=== PATIENT | male | born 1965 | race Caucasian/White ===

== ENCOUNTER 2018-12-17 09:01 | Inpatient (IN) | payer OTHER ==
[2018-12-17 09:25] VITALS: BMI 37.4
--- NOTE | 2018-12-17 10:25 | HP ---
CIWA Score Nausea/Vomitin-Int. Nausea w/Dry Heave Muscle Tremors: 2 Anxiety: 4-Mod. Anxious/Guarded Agitation: 1-Slight > Activity Paroxysmal Sweats: 3 Orientation: 0-Oriented Tacttile Disturbances: 2-Mild Itch/Numbness/Burn Auditory Disturbances: 0-None Visual Disturbances: 0-None Headache: 4-Moderately Severe CIWA-Ar Total Score: 20 - Admission Criteria OASAS Guidelines: Admission for Medically Managed Detox: Requires at least one of the followin. CIWA greater than 12 2. Seizures within the past 24 hours 3. Delirium tremens within the past 24 hours 4. Hallucinations within the past 24 hours 5. Acute intervention needed for co occurring medical disorder 6. Acute intervention needed for co occurring psychiatric disorder 7. Severe withdrawal that cannot be handled at a lower level of care (continued vomiting, continued diarrhea, abnormal vital signs) requiring intravenous medication and/or fluids 8. Patient presents the following: CIWA greater than 12 Admission Criteria Met: Admission criteria met Admission ROS S - HPI Allergies/Adverse Reactions: Allergies Allergy/AdvReac Type Severity Reaction Status Date / Time fish derived Allergy Intermediate Difficulty Verified 12/17/18 09:31 Breathing Penicillins Allergy Intermediate Difficulty Verified 12/17/18 09:31 Breathing shellfish derived Allergy Intermediate Difficulty Verified 12/17/18 09:31 Breathing seafood Allergy Intermediate Difficulty Uncoded 12/17/18 09:31 Breathing History of Present Illness: pt here requesting detox from etoh use reports 3 pints vodka and several large beers /day , denies seizures, + blackouts , tremors , currently intoxicated , symptoms as above , denies falls , reports he starts drinking all through the day . cocaine : 100 $ / day via inhalation . tobacco : 1 ppd PMhx : HTN , gerd PShx : dental surgery Meds : omeprazole, lisinopril, amlodipine, hctz , motrin prn . Exam Limitations: Clinical Condition, Intoxication - Ebola screening Have you traveled outside of the country in the last 21 days: No Have you had contact with anyone from an Ebola affected area: No Have you been sick,other than usual withdrawal symptoms: No Do you have a fever: No - Review of Systems Constitutional: See HPI EENT: reports: See HPI Respiratory: reports: No Symptoms reported Cardiac: reports: No Symptoms Reported GI: reports: See HPI : reports: No Symptoms Reported Musculoskeletal: reports: No Symptoms Reported Integumentary: reports: No Symptoms Reported Neuro: reports: See HPI, Headache Endocrine: reports: No Symptoms Reported Psychiatric: reports: Orientated x3 (denies current si / HI) Patient History - Patient Medical History Hx Anemia: No Hx Asthma: No Hx Chronic Obstructive Pulmonary Disease (COPD): No Hx Cancer: No Hx Cardiac Disorders: No Hx Congestive Heart Failure: No Hx Hypertension: Yes (ON MEDICATION) Hx Hypercholesterolemia: No Hx Pacemaker: No HX Cerebrovascular Accident: No Hx Seizures: No Hx Dementia: No Hx Diabetes: No Hx Gastrointestinal Disorders: No Hx Liver Disease: No Hx Genitourinary Disorders: No Hx Sexually Transmitted Disorders: No Hx Renal Disease (ESRD): No Hx Thyroid Disease: No Hx Human Immunodeficiency Virus (HIV): No Hx Hepatitis C: No Hx Depression: No Hx Suicide Attempt: No Hx Bipolar Disorder: No Hx Schizophrenia: No - Patient Surgical History Past Surgical History: Yes Hx Neurologic Surgery: No Hx Cataract Extraction: No Hx Cardiac Surgery: No Hx Lung Surgery: No Hx Breast Surgery: No Hx Breast Biopsy: No Hx Abdominal Surgery: No Hx Appendectomy: No Hx Cholecystectomy: No Hx Genitourinary Surgery: No Hx Section: No Hx Orthopedic Surgery: No Other Surgical History: peridontal gum disease removed 29 teeth Anesthesia Reaction: No - PPD History Previous Implant?: Yes Date: 07/16/13 Results: NEGATIVE - Smoking Cessation Smoking history: Current every day smoker Have you smoked in the past 12 months: Yes Aproximately how many cigarettes per day: 20 Cigars Per Day: 0 Hx Chewing Tobacco Use: No Initiated information on smoking cessation: No - Substances Abused Alcohol Route: Oral Frequency: Daily Amount used: 3 PINTS OF VODKA Age of first use: 35 Date of Last Use: 12/17/18 Crack Route: Inhalation Frequency: Daily Amount used: $100 Age of first use: 35 Date of Last Use: 12/17/18 Family Disease History - Family Disease History Family Disease History: CA: Father Admission Physical Exam BHS - Vital Signs Vital Signs: Vital Signs - 24 hr 12/17/18 09:19 Temperature 97.3 F L Pulse Rate 78 Respiratory 18 Rate Blood Pressure 118/70 - Physical General Appearance: Yes: Disheveled, Alcohol on Breath, Intoxicated HEENTM: Yes: EOMI, Hearing grossly Normal, Normocephalic, Normal Voice Respiratory: Yes: Chest Non-Tender, Lungs Clear, Normal Breath Sounds Neck: Yes: No masses,lesions,Nodules, Trachea in good position Breast: Yes: Breast Exam Deferred Cardiology: Yes: Regular Rhythm, Regular Rate, S1, S2 Abdominal: Yes: Normal Bowel Sounds, Soft, Protuberent Genitourinary: Yes: Within Normal Limits Back: Yes: Normal Inspection Musculoskeletal: Yes: full range of Motion, Gait Steady Extremities: Yes: Normal Capillary Refill, Non-Tender Neurological: Yes: Motor Strength 5/5 Integumentary: Yes: Normal Color Lymphatic: Yes: Within Normal Limits - Diagnostic (1) Nicotine dependence Current Visit: Yes Status: Chronic Qualifiers: Nicotine product type: cigarettes (2) Alcohol dependence Current Visit: No Status: Active (3) Cocaine dependence Current Visit: No Status: Chronic BHS Breath Alcohol Content Breath Alcohol Content: 0.050 Urine Drug Screen - Results Drug Screen Negative: No Urine Drug Screen Results: GEORGIE-Cocaine
[2018-12-17] MEDS ORDERED: P-EPHED 60MG/TRIPROLIDI 2.5MG TABLET PO PRN (10:26)
[2018-12-17] MEDS ORDERED: MAGNESIUM HYDROX 2400MG/30ML ORAL SUSPENSION 30 ML CUP PO PRN (10:26)
[2018-12-17] MEDS ORDERED: MAGNESIUM CITRATE 300 ML BOTTLE PO PRN (10:26)
[2018-12-17] MEDS ORDERED: MENTHOL/PHENOL 1 EACH UD MM PRN (10:26)
[2018-12-17] MEDS ORDERED: ACETAMINOPHEN 325 MG TABLET (FP) PO PRN (10:26)
[2018-12-17] MEDS ORDERED: guaiFENesin/D-METHORPHAN HB 10 ML UNIT-DOSE CUPS PO PRN (10:26)
[2018-12-17] MEDS ORDERED: MAG HYDROX/AL HYDROX/SIMETH 30 ML UNIT-DOSE CUP PO PRN (10:26)
[2018-12-17] MEDS: chlordiazePOXIDE HCL 25 MG CAPSULE PO PRN (11:43)
[2018-12-17] MEDS ORDERED: NICOTINE 14 MG/24 HOURS TOPICAL PATCH TD SCH (12:45)
--- NOTE | 2018-12-17 16:57 | PN ---
S Progress Note Note: Vital Signs Temperature 98.1 F 12/17/18 14:28 Pulse Rate 81 12/17/18 14:28 Respiratory Rate 18 12/17/18 14:28 Blood Pressure 143/71 12/17/18 14:28 O2 Sat by Pulse Oximetry (%) Patient refused low NA diet. Place on reg diet as per patients request.
[2018-12-17] MEDS: chlordiazePOXIDE HCL 25 MG CAPSULE PO SCH ×2 (17:42→22:17)
[2018-12-17] MEDS: IBUPROFEN 600 MG TABLET (FP) PO PRN (20:18)
[2018-12-17] MEDS: THIAMINE HCL 100 MG TABLET (FP) PO SCH (22:20)
[2018-12-17] MEDS: NICOTINE POLACRILEX 2 MG GUM BUC PRN (22:21)
[2018-12-18] MEDS: chlordiazePOXIDE HCL 25 MG CAPSULE PO SCH ×4 (06:11→22:09)
[2018-12-18 10:03] LABS: HEMATOCRIT 41.1 % (35.4-49); HEMOGLOBIN 14.4 GM/dL (11.7-16.9); MCH 33.3 pg (25.7-33.7); MEAN CELL VOLUME 94.9 fl (80-96); MEAN PLT VOLUME 8.2 fl (7.5-11.1); PLATELET COUNT 232 K/MM3 (134-434); RBC 4.33 M/mm3 (4.00-5.60); WHITE BLOOD COUNT 5.7 K/mm3 (4.0-10.0)
--- NOTE | 2018-12-18 10:36 | PN ---
S CIWA - CIWA Score Nausea/Vomitin-No Nausea/No Vomiting Muscle Tremors: 4-Moderate,w/Arms Extend Anxiety: 4-Mod. Anxious/Guarded Agitation: 4-Moderately Restless Paroxysmal Sweats: 3 Orientation: 0-Oriented Tacttile Disturbances: 0-None Auditory Disturbances: 0-None Visual Disturbances: 0-None Headache: 0-None Present CIWA-Ar Total Score: 15 BHS Progress Note (SOAP) Subjective: tired sleepy sweats shakes interrupted sleep body aches sore throat nausea Objective: 12/18/18 10:35 Vital Signs Temperature 98.2 F 12/18/18 09:38 Pulse Rate 61 12/18/18 09:38 Respiratory Rate 20 12/18/18 09:38 Blood Pressure 153/81 12/18/18 09:38 O2 Sat by Pulse Oximetry (%) Laboratory Tests 12/18/18 07:00 WBC 5.7 RBC 4.33 Hgb 14.4 Hct 41.1 MCV 94.9 MCH 33.3 MCHC 35.0 RDW 14.0 Plt Count 232 MPV 8.2 rest of labs pending aaox3 ambulating no acute distress Assessment: 12/18/18 10:35 withdrawal sx Plan: continue detox increase fluids labs pending zofran prn
[2018-12-18] MEDS: amLODIPine BESYLATE 10 MG TABLET (FP) PO SCH (10:55)
[2018-12-18] MEDS: HYDROCHLOROTHIAZIDE 25 MG TABLET (FP) PO SCH (10:55)
[2018-12-18] MEDS: LISINOPRIL 20 MG TABLET (FP) PO SCH (10:55)
[2018-12-18] MEDS: PANTOPRAZOLE 40 MG TABLET (FP) PO SCH (10:55)
[2018-12-18] MEDS: PRENATAL VITAMINS W/ FOLIC ACID TABLET (FP) PO SCH (10:55)
[2018-12-18] MEDS: NICOTINE 21 MG/24 HOURS TOPICAL PATCH TD SCH (10:56)
[2018-12-18] MEDS: NICOTINE POLACRILEX 2 MG GUM BUC PRN ×3 (10:59→20:30)
[2018-12-18] MEDS ORDERED: ONDANSETRON *ODT* 4 MG TABLET SL PRN (10:59)
[2018-12-18 11:16] LABS: ALBUMIN 3.4 g/dl (3.4-5.0); ALK PHOS 153 U/L (45-117); ANION GAP 6 MMOL/L (8-16); BILIRUBIN,TOTAL 0.4 mg/dL (0.2-1); BLOOD UREA NITROGEN 23 mg/dL (7-18); CALCIUM 8.4 mg/dL (8.5-10.1); CHLORIDE 107 mmol/L (98-107); CO2 29 mmol/L (21-32); GLUCOSE,RANDOM 83 mg/dL (74-106); POTASSIUM 3.9 mmol/L (3.5-5.1); SGOT/AST 25 U/L (15-37); SGPT/ALT 27 U/L (13-61); SODIUM 142 mmol/L (136-145); TOT PROT 6.5 g/dl (6.4-8.2)
[2018-12-18] MEDS: IBUPROFEN 600 MG TABLET (FP) PO PRN ×2 (13:12→20:28)
[2018-12-18] MEDS: chlordiazePOXIDE HCL 25 MG CAPSULE PO PRN (13:15)
[2018-12-18] MEDS: VITAMINS A AND D TOPICAL OINTMENT 60 GM TUBE TP SCH ×2 (15:44→22:09)
[2018-12-18] MEDS: THIAMINE HCL 100 MG TABLET (FP) PO SCH (22:09)
[2018-12-18] MEDS: MELATONIN 5 MG TABLETS PO PRN (23:42)
[2018-12-19] MEDS: IBUPROFEN 600 MG TABLET (FP) PO PRN ×3 (06:02→18:39)
[2018-12-19] MEDS: chlordiazePOXIDE HCL 25 MG CAPSULE PO SCH ×2 (06:02→10:19)
[2018-12-19] MEDS: LISINOPRIL 20 MG TABLET (FP) PO SCH (10:19)
[2018-12-19] MEDS: amLODIPine BESYLATE 10 MG TABLET (FP) PO SCH (10:19)
[2018-12-19] MEDS: PANTOPRAZOLE 40 MG TABLET (FP) PO SCH (10:20)
[2018-12-19] MEDS: VITAMINS A AND D TOPICAL OINTMENT 60 GM TUBE TP SCH ×2 (10:20→22:05)
[2018-12-19] MEDS: HYDROCHLOROTHIAZIDE 25 MG TABLET (FP) PO SCH (10:21)
[2018-12-19] MEDS: NICOTINE 21 MG/24 HOURS TOPICAL PATCH TD SCH (10:22)
[2018-12-19] MEDS: PRENATAL VITAMINS W/ FOLIC ACID TABLET (FP) PO SCH (10:22)
[2018-12-19] MEDS: NICOTINE POLACRILEX 2 MG GUM BUC PRN ×3 (10:23→22:06)
--- NOTE | 2018-12-19 11:14 | PN ---
S CIWA - CIWA Score Nausea/Vomitin-No Nausea/No Vomiting Muscle Tremors: 2 Anxiety: 2 Agitation: 2 Paroxysmal Sweats: 2 Orientation: 0-Oriented Tacttile Disturbances: 0-None Auditory Disturbances: 0-None Visual Disturbances: 0-None Headache: 0-None Present CIWA-Ar Total Score: 8 BHS Progress Note (SOAP) Subjective: sweats anxiety Due to getting to my next level of care in [place], i need to leave early tomorrow. Objective: 12/19/18 11:17 Vital Signs Temperature 97.3 F L 12/19/18 10:23 Pulse Rate 78 12/19/18 10:23 Respiratory Rate 18 12/19/18 10:23 Blood Pressure 120/85 12/19/18 10:23 O2 Sat by Pulse Oximetry (%) Laboratory Tests 12/18/18 12/18/18 12/18/18 07:00 07:00 07:00 WBC 5.7 RBC 4.33 Hgb 14.4 Hct 41.1 MCV 94.9 MCH 33.3 MCHC 35.0 RDW 14.0 Plt Count 232 MPV 8.2 Sodium 142 Potassium 3.9 Chloride 107 Carbon Dioxide 29 Anion Gap 6 L BUN 23 H Creatinine 1.0 Creat Clearance w eGFR > 60 Random Glucose 83 Calcium 8.4 L Total Bilirubin 0.4 AST 25 ALT 27 Alkaline Phosphatase 153 H Total Protein 6.5 Albumin 3.4 RPR Titer Nonreactive aaox3 ambulating no acute distress Assessment: 12/19/18 11:18 mild withdrawal sx Plan: continue detox increase fluids medications sent to pt pharmacy as requested d/c at 5:45am as per pt request. this early d/c was discussed to Luci nursing supervisor inspecting and pt and was agreed pt will be d/c at this time d/u his multiple connections to get to his final destination on time.
[2018-12-19] MEDS: chlordiazePOXIDE 5 MG CAPSULE PO SCH ×2 (17:21→22:05)
[2018-12-19 17:52] VITALS: PULSE 80
[2018-12-19 21:58] VITALS: BP 140/82; TEMP 98.2
[2018-12-19] MEDS: THIAMINE HCL 100 MG TABLET (FP) PO SCH (22:05)
[2018-12-19] MEDS: MELATONIN 5 MG TABLETS PO PRN (22:06)
[2018-12-20] MEDS: IBUPROFEN 600 MG TABLET (FP) PO PRN (03:10)
--- NOTE | 2018-12-20 15:33 | DS ---
[facility] Detox Discharge Summary Admission Date: 12/17/18 Discharge Date: 12/20/18 - History Present History: Alcohol Dependence, Cocaine Dependence - Physical Exam Results Vital Signs: Vital Signs Temperature 98.2 F 12/19/18 21:57 Pulse Rate 80 12/19/18 21:57 Respiratory Rate 18 12/20/18 03:30 Blood Pressure 140/82 12/19/18 21:57 O2 Sat by Pulse Oximetry (%) - Treatment Hospital Course: Detox Protocol Followed, Responded well - Medication Discharge Medications: Ambulatory Orders Ibuprofen [Motrin -] 600 mg PO PRN PRN 11/06/13 Amlodipine Besylate [Norvasc -] 10 mg PO DAILY #30 tablet 12/19/18 Hydrochlorothiazide [Hctz -] 25 mg PO DAILY #30 tablet 12/19/18 Lisinopril 20 mg PO DAILY #30 tablet 12/19/18 Omeprazole 40 mg PO DAILY #30 tablet. 12/19/18 - Diagnosis (1) Alcohol dependence Status: Active (2) Eczema Status: Active (3) Essential hypertension Status: Active (4) Sleep apnea Status: Active (5) Syncope Status: Active (6) norbid obesity Status: Active (7) Cocaine dependence Status: Chronic (8) Nicotine dependence Status: Chronic Qualifiers: Nicotine product type: cigarettes - AMA Did Patient Leave Against Medical Advice: No (referred to [facility])
[2018-12-20] MEDS ORDERED: chlordiazePOXIDE HCL 10 MG CAPSULE PO SCH (17:00)
== END 2018-12-20 05:40 | disposition home or self-care (01) | DRG 774 ==
LOC: YASAS 09:01 → Y6N 10:42
PROVIDERS: ADMIT Surgery; ATTEND Surgery
PROC: HZ2ZZZZ Detoxification Services for Substance Abuse Treatment (ICD-10-PCS; principal; 2018-12-17)
DX: F10.230 Alcohol dependence with withdrawal, uncomplicated (principal); F14.20 Cocaine dependence, uncomplicated; F17.210 Nicotine dependence, cigarettes, uncomplicated; I10 Essential (primary) hypertension; L30.9 Dermatitis, unspecified; E66.01 Morbid (severe) obesity due to excess calories; Z68.37 Body mass index [BMI] 37.0-37.9, adult; Z88.0 Allergy status to penicillin; Z91.013 Allergy to seafood
CPT/HCPCS: 36415; 80053; 85027; 86593

== ENCOUNTER 2019-06-12 10:14 | Inpatient (IN) | payer OTHER | END 2019-06-16 05:15 | disposition home or self-care (01) | LOC: YASAS 10:14 → Y6N 14:19 | PROC: HZ2ZZZZ Detoxification Services for Substance Abuse Treatment (ICD-10-PCS; principal; 2019-06-12) | DX: F10.230 Alcohol dependence with withdrawal, uncomplicated (principal); F14.20 Cocaine dependence, uncomplicated; F17.210 Nicotine dependence, cigarettes, uncomplicated; I10 Essential (primary) hypertension; E66.01 Morbid (severe) obesity due to excess calories; Z68.34 Body mass index [BMI] 34.0-34.9, adult; Z88.0 Allergy status to penicillin; Z91.013 Allergy to seafood ==

== ENCOUNTER 2019-08-16 10:09 | Inpatient (IN) | payer OTHER ==
[2019-08-16 11:00] VITALS: BMI 35.9
--- NOTE | 2019-08-16 11:46 | HP ---
CIWA Score Nausea/Vomitin Muscle Tremors: 3 Anxiety: 4-Mod. Anxious/Guarded Agitation: 2 Paroxysmal Sweats: 1-Minimal Palms Moist Orientation: 0-Oriented Tacttile Disturbances: 2-Mild Itch/Numbness/Burn Auditory Disturbances: 0-None Visual Disturbances: 0-None Headache: 3-Moderate CIWA-Ar Total Score: 18 - Admission Criteria OASAS Guidelines: Admission for Medically Managed Detox: Requires at least one of the followin. CIWA greater than 12 2. Seizures within the past 24 hours 3. Delirium tremens within the past 24 hours 4. Hallucinations within the past 24 hours 5. Acute intervention needed for co occurring medical disorder 6. Acute intervention needed for co occurring psychiatric disorder 7. Severe withdrawal that cannot be handled at a lower level of care (continued vomiting, continued diarrhea, abnormal vital signs) requiring intravenous medication and/or fluids 8. Patient presents the following: CIWA greater than 12 Admission Criteria Met: Admission criteria met Admitting History and Physical - Admission History Source: Patient - Social History Usual Living Arrangement: Yes: Alone Occupation: works as aluminum siding installer at [employer] Admission ROS BHS - HPI Chief Complaint: I need help, I can't lose my job, I have bills, my boss said 'get your shit together or you don't have a job'. I feel like right now, all I want is a drink to make it stop but I know I can't, I need help. Allergies/Adverse Reactions: Allergies Allergy/AdvReac Type Severity Reaction Status Date / Time fish derived Allergy Intermediate Difficulty Verified 08/16/19 11:01 Breathing Penicillins Allergy Intermediate Difficulty Verified 08/16/19 11:01 Breathing shellfish derived Allergy Intermediate Difficulty Verified 08/16/19 11:01 Breathing History of Present Illness: 54 yo gentleman here for detox from alcohol - also using cocaine - this is one of multiple admissions for treatment - last here 06/12/19. History of black outs but no seizures. Longest time sober three years. urine tox + bzo but does not use benzodiazepine separately thinks mixed with the cocaine. He is interested in MAT upon discharge. Is in danger of losing his job. Exam Limitations: Clinical Condition - Ebola screening Have you traveled outside of the country in the last 21 days: No (N) Have you had contact with anyone from an Ebola affected area: No Do you have a fever: No - Review of Systems Constitutional: Loss of Appetite, Changes in sleep, Weakness EENT: reports: Blurred Vision Respiratory: reports: No Symptoms reported Cardiac: reports: No Symptoms Reported GI: reports: Nausea, Poor Fluid Intake, Indigestion, Abdominal cramping : reports: Frequency Musculoskeletal: reports: Muscle Pain, Muscle Weakness Integumentary: reports: Dryness Neuro: reports: Headache, Paresthesia, Tremors Endocrine: reports: No Symptoms Reported Hematology: reports: No Symptoms Reported Psychiatric: reports: Judgement Intact, Mood/Affect Appropiate, Anxious Other Systems: Reviewed and Negative Patient History - Patient Medical History Hx Anemia: No Hx Asthma: No Hx Chronic Obstructive Pulmonary Disease (COPD): No Hx Cancer: No Hx Cardiac Disorders: No Hx Congestive Heart Failure: No Hx Hypertension: Yes Hx Hypercholesterolemia: No Hx Pacemaker: No HX Cerebrovascular Accident: No Hx Seizures: No Hx Dementia: No Hx Diabetes: No Hx Gastrointestinal Disorders: No Hx Liver Disease: No Hx Genitourinary Disorders: No Hx Sexually Transmitted Disorders: No Hx Renal Disease (ESRD): No Hx Thyroid Disease: No Hx Human Immunodeficiency Virus (HIV): No Hx Hepatitis C: No Hx Depression: No Hx Suicide Attempt: No Hx Bipolar Disorder: No Hx Schizophrenia: No - Patient Surgical History Past Surgical History: Yes Hx Neurologic Surgery: No Hx Cataract Extraction: No Hx Cardiac Surgery: No Hx Lung Surgery: No Hx Breast Surgery: No Hx Breast Biopsy: No Hx Abdominal Surgery: No Hx Appendectomy: No Hx Cholecystectomy: No Hx Genitourinary Surgery: No Hx Section: No Hx Orthopedic Surgery: No Other Surgical History: peridontal gum disease removed 29 teeth [id number] Anesthesia Reaction: No - PPD History Previous Implant?: Yes Documented Results: Negative w/proof Implanted On Prior R Admission?: Yes Date: 06/12/19 (TB quantiferon) Results: NEGATIVE PPD to be Administered?: No - Reproductive History Patient is a Female of Child Bearing Age (11 -55 yrs old): No - Smoking Cessation Smoking history: Current every day smoker Have you smoked in the past 12 months: Yes Aproximately how many cigarettes per day: 20 Cigars Per Day: 0 Hx Chewing Tobacco Use: No Initiated information on smoking cessation: Yes 'Breaking Loose' booklet given: 08/16/19 (give on floor) - Substance & Tx. History Hx Alcohol Use: Yes Hx Substance Use: Yes Substance Use Type: Alcohol, Cocaine Hx Substance Use Treatment: Yes (detox, rehab) - Substances abused Alcohol Substance route: Oral Frequency: Daily Amount used: 2 pint of vodka/[employer] & 4 [employer]os Age of first use: 33 Date of last use: 08/15/19 Cocaine Substance route: Inhalation Frequency: Daily Amount used: $50-75/day Age of first use: 33 Date of last use: 08/15/19 Admission Physical Exam [facility] - Vital Signs Vital Signs: Vital Signs - 24 hr 08/16/19 10:51 Temperature 97.3 F L Pulse Rate 74 Respiratory 17 Rate Blood Pressure 149/96 - Physical General Appearance: Yes: Nourished, Appropriately Dressed, Moderate Distress, Obese, Tremorous, Anxious HEENTM: Yes: EOMI, Hearing grossly Normal, Normocephalic, Normal Voice, Pharynx Normal, Other (missing most of his teeth) Respiratory: Yes: Normal Breath Sounds, No Respiratory Distress Neck: Yes: No masses,lesions,Nodules Breast: Yes: Breast Exam Deferred Cardiology: Yes: Regular Rhythm, Regular Rate Abdominal: Yes: Soft, Protuberent Genitourinary: Yes: Frequency Back: Yes: Normal Inspection Musculoskeletal: Yes: full range of Motion, Gait Steady, Muscle Pain Extremities: Yes: Normal Inspection, Normal Range of Motion, Non-Tender, Tremors Neurological: Yes: Fully Oriented, Alert, Motor Strength 5/5, Normal Mood/Affect , Normal Response, Numbness Integumentary: Yes: Normal Color, Warm Lymphatic: Yes: Within Normal Limits - Diagnostic (1) Alcohol dependence with uncomplicated withdrawal Current Visit: Yes Status: Chronic (2) Cocaine dependence Current Visit: Yes Status: Chronic (3) Eczema Current Visit: Yes Status: Chronic (4) Essential hypertension Current Visit: Yes Status: Chronic (5) Syncope Current Visit: Yes Status: Chronic (6) Nicotine dependence Current Visit: Yes Status: Chronic Qualifiers: Nicotine product type: cigarettes Substance use status: uncomplicated Qualified Code(s): F17.210 - Nicotine dependence, cigarettes, uncomplicated (7) Loud snoring Current Visit: Yes Status: Chronic Cleared for Admission [facility] - Detox or Rehab [facility] Level of Care: Medically Managed Detox Regimen/Protocol: Librium Breathalyzer - Breathalyzer Breathalyzer: 0 POC Urine test - Test device test lot number: not applicable Urine Drug Screen - Test Device Lot number: [id number] Expiration date: 04/11/21 - Control Is test valid?: Yes - Results Drug screen NEGATIVE: No Urine drug screen results: GEORGIE-Cocaine, BZO-Benzodiazepines Inpatient Rehab Admission - Rehab Decision to Admit Inpatient rehab admission?: No
[2019-08-16] MEDS ORDERED: BISMUTH SUBSALICYLATE 524 MG/30 ML UD PO PRN (11:57)
[2019-08-16] MEDS ORDERED: IBUPROFEN 400 MG TABLET (FP) PO PRN (11:57)
[2019-08-16] MEDS ORDERED: MAGNESIUM HYDROX 2400MG/30ML ORAL SUSPENSION 30 ML CUP PO PRN (11:57)
[2019-08-16] MEDS ORDERED: MELATONIN 5 MG TABLETS PO PRN (11:57)
[2019-08-16] MEDS ORDERED: MENTHOL/PHENOL 1 EACH UD MM PRN (11:57)
[2019-08-16] MEDS ORDERED: METHOCARBAMOL 500 MG TABLET PO PRN (11:57)
[2019-08-16] MEDS ORDERED: MAGNESIUM CITRATE 300 ML BOTTLE PO PRN (11:57)
[2019-08-16] MEDS ORDERED: chlordiazePOXIDE HCL 25 MG CAPSULE PO PRN (11:57)
[2019-08-16] MEDS ORDERED: MAG HYDROX/AL HYDROX/SIMETH 30 ML UNIT-DOSE CUP PO PRN (11:57)
[2019-08-16] MEDS ORDERED: chlordiazePOXIDE HCL 25 MG CAPSULE PO ONE (11:57)
[2019-08-16] MEDS: HYDROCHLOROTHIAZIDE 25 MG TABLET (FP) PO SCH (13:18)
[2019-08-16] MEDS: LISINOPRIL 20 MG TABLET (FP) PO SCH (13:18)
[2019-08-16] MEDS: PANTOPRAZOLE 40 MG TABLET (FP) PO SCH (13:18)
[2019-08-16] MEDS: amLODIPine BESYLATE 10 MG TABLET (FP) PO SCH (13:18)
[2019-08-16] MEDS: NICOTINE 14 MG/24 HOURS TOPICAL PATCH TD SCH (13:19)
[2019-08-16] MEDS: NICOTINE POLACRILEX 4 MG GUM BUC PRN ×3 (13:51→21:09)
[2019-08-16] MEDS: chlordiazePOXIDE HCL 25 MG CAPSULE PO SCH ×2 (17:15→22:02)
[2019-08-16] MEDS: VITAMINS A AND D TOPICAL OINTMENT 60 GM TUBE TP PRN (17:16)
[2019-08-16] MEDS ORDERED: IBUPROFEN 600 MG TABLET (FP) PO PRN (19:30)
[2019-08-16] MEDS: LORATADINE 10 MG TABLET PO SCH (22:02)
[2019-08-16] MEDS: THIAMINE HCL 100 MG TABLET (FP) PO SCH (22:02)
[2019-08-16] MEDS: IBUPROFEN 600 MG TABLET (FP) PO PRN (22:04)
[2019-08-17] MEDS: chlordiazePOXIDE HCL 25 MG CAPSULE PO SCH ×4 (06:09→22:19)
[2019-08-17] MEDS: NICOTINE POLACRILEX 4 MG GUM BUC PRN ×3 (09:06→16:36)
[2019-08-17] MEDS ORDERED: LORATADINE 10 MG TABLET PO SCH (10:00)
[2019-08-17] MEDS: NICOTINE 14 MG/24 HOURS TOPICAL PATCH TD SCH (10:20)
[2019-08-17] MEDS: LISINOPRIL 20 MG TABLET (FP) PO SCH (10:21)
[2019-08-17] MEDS: amLODIPine BESYLATE 10 MG TABLET (FP) PO SCH (10:21)
[2019-08-17] MEDS: PANTOPRAZOLE 40 MG TABLET (FP) PO SCH (10:21)
[2019-08-17] MEDS: HYDROCHLOROTHIAZIDE 25 MG TABLET (FP) PO SCH (10:21)
[2019-08-17] MEDS: PRENATAL VITAMINS W/ FOLIC ACID TABLET (FP) PO SCH (10:22)
[2019-08-17] MEDS ORDERED: ACETAMINOPHEN 325 MG TABLET (FP) PO ONE (10:58)
--- NOTE | 2019-08-17 11:01 | PN ---
S CIWA - CIWA Score Nausea/Vomitin-No Nausea/No Vomiting Muscle Tremors: 3 Anxiety: 4-Mod. Anxious/Guarded Agitation: 2 Paroxysmal Sweats: 2 Orientation: 0-Oriented Tacttile Disturbances: 1-Very Mild Itch/Numbness Auditory Disturbances: 0-None Visual Disturbances: 0-None Headache: 1-Very Mild CIWA-Ar Total Score: 13 BHS Progress Note (SOAP) Subjective: doing well with librium detox regimen ambulating on hallway discuss aftercare with staff patient prefers to return to work on 08/21/19 patient consider to be discharged one day early report mild headache take tylenal at home one dose tylenal 650 mg po x 1 Objective: 08/17/19 11:00 Vital Signs Temperature 96.6 F L 08/17/19 09:11 Pulse Rate 82 08/17/19 09:11 Respiratory Rate 18 08/17/19 09:11 Blood Pressure 138/85 08/17/19 09:11 O2 Sat by Pulse Oximetry (%) 08/17/19 11:01 lab see 06/2019 result Assessment: 08/17/19 11:01 alcohol withdrawal sx Plan: continue librium detox regimen
[2019-08-17] MEDS: IBUPROFEN 600 MG TABLET (FP) PO PRN (16:34)
[2019-08-17] MEDS: LORATADINE 10 MG TABLET PO SCH (22:19)
[2019-08-17] MEDS: THIAMINE HCL 100 MG TABLET (FP) PO SCH (22:19)
[2019-08-17] MEDS: ACETAMINOPHEN 325 MG TABLET (FP) PO PRN (23:11)
[2019-08-17] MEDS: VITAMINS A AND D TOPICAL OINTMENT 60 GM TUBE TP PRN (23:27)
[2019-08-18] MEDS: chlordiazePOXIDE HCL 25 MG CAPSULE PO SCH ×4 (07:00→22:01)
[2019-08-18] MEDS: NICOTINE POLACRILEX 4 MG GUM BUC PRN ×5 (08:36→23:19)
[2019-08-18] MEDS: PRENATAL VITAMINS W/ FOLIC ACID TABLET (FP) PO SCH (10:21)
[2019-08-18] MEDS: amLODIPine BESYLATE 10 MG TABLET (FP) PO SCH (10:22)
[2019-08-18] MEDS: NICOTINE 14 MG/24 HOURS TOPICAL PATCH TD SCH (10:22)
[2019-08-18] MEDS: LISINOPRIL 20 MG TABLET (FP) PO SCH (10:22)
[2019-08-18] MEDS: PANTOPRAZOLE 40 MG TABLET (FP) PO SCH (10:22)
[2019-08-18] MEDS: HYDROCHLOROTHIAZIDE 25 MG TABLET (FP) PO SCH (11:28)
[2019-08-18] MEDS: ACETAMINOPHEN 325 MG TABLET (FP) PO PRN ×2 (13:42→22:01)
--- NOTE | 2019-08-18 14:50 | PN ---
[facility] CIWA - CIWA Score Nausea/Vomitin (Diarrhea.) Muscle Tremors: None Anxiety: 4-Mod. Anxious/Guarded Agitation: 4-Moderately Restless Paroxysmal Sweats: No Perspiration Orientation: 0-Oriented Tacttile Disturbances: 0-None Auditory Disturbances: 1-Very Mild Visual Disturbances: 0-None Headache: 0-None Present CIWA-Ar Total Score: 11 S Progress Note (SOAP) Subjective: Diarrhea, Body Aches, Anxious. Patient reports That Current withdrawal Detox Symptoms in General Are Gradually Beginning to Diminish in Severity. Objective: PATIENT A & O X 3, OBSERVED AMBULATING ON DETOX UNIT UNASSISTED. IN NO ACUTE DISTRESS. 08/18/19 14:47 Vital Signs Temperature 97.5 F L 08/18/19 13:13 Pulse Rate 74 08/18/19 13:13 Respiratory Rate 18 08/18/19 13:13 Blood Pressure 127/86 08/18/19 13:13 O2 Sat by Pulse Oximetry (%) PATIENT REFUSED TO HAVE DETOX ADMISSION LABS DRAWN. RESULTS OF ADMISSION LABS FROM 06/12/2019 NOTED. 08/18/19 14:49 Assessment: 08/18/19 14:51 WITHDRAWAL SYMPTOMS. Plan: CONTINUE DETOX. INCREASE DAILY PO WATER INTAKE. PRN PEPTO-BISMOL PO FOR DIARRHEA.
--- NOTE | 2019-08-18 15:09 | PN ---
S Progress Note (SOAP) Subjective: 54 years old male admitted on 08/16/19 for alcohol withdrawal sx management estimate discharge date 08/21/19 patient requests to be discharged around 0445 for 0515 bus patient dose not want to be discharged one day early due to fear of temptation and relapse patient stated that last admission that he was able to leave the detox unit around 4 am case discussed with counselor coordinated with security that it is possible for patient to catch on 0515 AM bus received counselor called that insurance covered transportation (Taxi) for patient to leave around 6 am more align with hospital policy of 8 am the counselor will arrange the transportation and discharge time delay till 6 am
[2019-08-18] MEDS: IBUPROFEN 600 MG TABLET (FP) PO PRN (17:10)
[2019-08-18] MEDS: THIAMINE HCL 100 MG TABLET (FP) PO SCH (22:01)
[2019-08-18] MEDS: LORATADINE 10 MG TABLET PO SCH (22:01)
[2019-08-19] MEDS ORDERED: chlordiazePOXIDE HCL 10 MG CAPSULE PO PRN
[2019-08-19] MEDS: ACETAMINOPHEN 325 MG TABLET (FP) PO PRN ×2 (05:28→15:08)
[2019-08-19] MEDS: chlordiazePOXIDE HCL 10 MG CAPSULE PO SCH ×4 (05:28→22:09)
[2019-08-19] MEDS: IBUPROFEN 600 MG TABLET (FP) PO PRN ×2 (09:13→22:09)
[2019-08-19] MEDS: LISINOPRIL 20 MG TABLET (FP) PO SCH (10:13)
[2019-08-19] MEDS: HYDROCHLOROTHIAZIDE 25 MG TABLET (FP) PO SCH (10:14)
[2019-08-19] MEDS: NICOTINE 14 MG/24 HOURS TOPICAL PATCH TD SCH (10:14)
[2019-08-19] MEDS: amLODIPine BESYLATE 10 MG TABLET (FP) PO SCH (10:14)
[2019-08-19] MEDS: PRENATAL VITAMINS W/ FOLIC ACID TABLET (FP) PO SCH (10:14)
[2019-08-19] MEDS: PANTOPRAZOLE 40 MG TABLET (FP) PO SCH (10:14)
[2019-08-19] MEDS: NICOTINE POLACRILEX 4 MG GUM BUC PRN ×4 (10:17→20:33)
--- NOTE | 2019-08-19 15:50 | PN ---
[facility] CIWA - CIWA Score Nausea/Vomitin-No Nausea/No Vomiting Muscle Tremors: None Anxiety: 4-Mod. Anxious/Guarded Agitation: 4-Moderately Restless Paroxysmal Sweats: 1-Minimal Palms Moist Orientation: 0-Oriented Tacttile Disturbances: 1-Very Mild Itch/Numbness Auditory Disturbances: 1-Very Mild Visual Disturbances: 0-None Headache: 0-None Present CIWA-Ar Total Score: 11 S Progress Note (SOAP) Subjective: Diarrhea (Subsiding), Anxious, Restless. Objective: PATIENT A & O X 3, OBSERVED AMBULATING ON DETOX UNIT UNASSISTED. IN NO ACUTE DISTRESS. 08/19/19 15:52 Vital Signs Temperature 97.5 F L 08/19/19 13:34 Pulse Rate 71 08/19/19 13:34 Respiratory Rate 18 08/19/19 13:34 Blood Pressure 143/89 08/19/19 13:34 O2 Sat by Pulse Oximetry (%) PATIENT REFUSED TO HAVE DETOX ADMISSION LABS DRAWN. Assessment: 08/19/19 15:53 WITHDRAWAL SYMPTOMS. Plan: CONTINUE DETOX. INCREASE DAILY PO WATER INTAKE. PRN PEPTO-BISMOL PO FOR DIARRHEA.
[2019-08-19] MEDS: LORATADINE 10 MG TABLET PO SCH (22:08)
[2019-08-19] MEDS: THIAMINE HCL 100 MG TABLET (FP) PO SCH (22:08)
[2019-08-20] MEDS: chlordiazePOXIDE HCL 10 MG CAPSULE PO SCH ×2 (05:25→17:19)
[2019-08-20] MEDS: ACETAMINOPHEN 325 MG TABLET (FP) PO PRN ×2 (05:26→17:20)
[2019-08-20] MEDS: NICOTINE POLACRILEX 4 MG GUM BUC PRN ×5 (05:28→21:21)
--- NOTE | 2019-08-20 09:54 | PN ---
[facility] CIWA - CIWA Score Nausea/Vomitin-No Nausea/No Vomiting Muscle Tremors: 2 Anxiety: 4-Mod. Anxious/Guarded Agitation: 4-Moderately Restless Paroxysmal Sweats: No Perspiration Orientation: 0-Oriented Tacttile Disturbances: 0-None Auditory Disturbances: 0-None Visual Disturbances: 0-None Headache: 0-None Present CIWA-Ar Total Score: 10 BHS Progress Note (SOAP) Subjective: c/o acid reflux, anxious, interrupted sleep, agitated Objective: 08/20/19 09:55 Vital Signs Temperature 97.8 F 08/20/19 09:06 Pulse Rate 80 08/20/19 09:06 Respiratory Rate 18 08/20/19 09:06 Blood Pressure 137/88 08/20/19 09:06 O2 Sat by Pulse Oximetry (%) Assessment: 08/20/19 09:57 Aox3 no acute distress, anxious full ROM, no gait disturbance, ambulating in no adventitious breath sounds Plan: Rehab [facility] 08/25/19 a,d AA meeting D/C in AM at 5:45AM
[2019-08-20] MEDS: PRENATAL VITAMINS W/ FOLIC ACID TABLET (FP) PO SCH (10:05)
[2019-08-20] MEDS: LISINOPRIL 20 MG TABLET (FP) PO SCH (10:05)
[2019-08-20] MEDS: HYDROCHLOROTHIAZIDE 25 MG TABLET (FP) PO SCH (10:05)
[2019-08-20] MEDS: NICOTINE 14 MG/24 HOURS TOPICAL PATCH TD SCH (10:05)
[2019-08-20] MEDS: PANTOPRAZOLE 40 MG TABLET (FP) PO SCH (10:05)
[2019-08-20] MEDS: amLODIPine BESYLATE 10 MG TABLET (FP) PO SCH (10:05)
[2019-08-20] MEDS: hydrOXYzine PAMOATE 25 MG CAPSULE (FP) PO PRN ×2 (10:09→21:20)
[2019-08-20] MEDS: IBUPROFEN 600 MG TABLET (FP) PO PRN (13:23)
[2019-08-20] MEDS ORDERED: PANTOPRAZOLE 40 MG TABLET (FP) PO ONE (16:00)
[2019-08-20 17:30] VITALS: TEMP 97
[2019-08-20] MEDS: LORATADINE 10 MG TABLET PO SCH (21:11)
[2019-08-20] MEDS: THIAMINE HCL 100 MG TABLET (FP) PO SCH (21:12)
[2019-08-20 21:13] VITALS: BP 112/78; PULSE 90
--- NOTE | 2019-08-20 23:03 | DS ---
[facility] Detox Discharge Summary Admission Date: 08/16/19 Discharge Date: 08/20/19 - History Present History: Alcohol Dependence, Cocaine Dependence Additional Comments: CLIENT REFUSED ADMISSION LABS. REQUESTED TO BE DC A FEW HOURS EARLIER THAN SCHEDULED DC CLIENT DID NOT ANOTHER CLIENT IN HIS ROOM. Pertinent Past History: NICOTINE DEP HTN ? SLEEP APNEA ECZEMA - Physical Exam Results Vital Signs: Vital Signs Temperature 97 F L 08/20/19 21:12 Pulse Rate 90 08/20/19 21:12 Respiratory Rate 18 08/20/19 21:12 Blood Pressure 112/78 08/20/19 21:12 O2 Sat by Pulse Oximetry (%) Pertinent Admission Physical Exam Findings: withdrawal sx's refused admission labs - Treatment Hospital Course: Detox Protocol Followed, Detoxed Safely, Responded well, Discharged Condition Good, Rehab Referral Accepted Patient has Accepted a Rehab Referral to: [facility] - Medication Discharge Medications: Ambulatory Orders Ibuprofen [Motrin -] 600 mg PO TID PRN 08/16/19 Amlodipine Besylate [Norvasc -] 10 mg PO DAILY #14 tablet 08/18/19 Hydrochlorothiazide [Hctz -] 25 mg PO DAILY #14 tablet 08/18/19 Lisinopril 20 mg PO DAILY #14 tablet 08/18/19 Loratadine 10 mg PO HS #14 tablet 08/18/19 Omeprazole Magnesium [Prilosec Otc] 40 mg PO DAILY 30 Days #30 tablet. - Diagnosis (1) Alcohol dependence with uncomplicated withdrawal Status: Acute (2) Cocaine dependence Status: Chronic (3) Eczema Status: Chronic (4) Essential hypertension Status: Chronic (5) Nicotine dependence Status: Chronic Qualifiers: Nicotine product type: cigarettes Substance use status: uncomplicated Qualified Code(s): F17.210 - Nicotine dependence, cigarettes, uncomplicated (6) Loud snoring Status: Chronic - AMA Did Patient Leave Against Medical Advice: No
[2019-08-21] MEDS ORDERED: chlordiazePOXIDE HCL 10 MG CAPSULE PO ONE (05:00)
== END 2019-08-20 23:04 | disposition home or self-care (01) | DRG 774 ==
LOC: YASAS 10:09 → Y3N 12:31
PROVIDERS: ADMIT Allergy & Immunology; ATTEND Allergy & Immunology
PROC: HZ2ZZZZ Detoxification Services for Substance Abuse Treatment (ICD-10-PCS; principal; 2019-08-16)
DX: F10.230 Alcohol dependence with withdrawal, uncomplicated (principal); F14.20 Cocaine dependence, uncomplicated; F17.210 Nicotine dependence, cigarettes, uncomplicated; I10 Essential (primary) hypertension; R06.83 Snoring; L30.9 Dermatitis, unspecified; E66.9 Obesity, unspecified; Z68.35 Body mass index [BMI] 35.0-35.9, adult; Z88.0 Allergy status to penicillin; Z91.013 Allergy to seafood

== ENCOUNTER 2020-10-22 09:38 | Inpatient (IN) | payer OTHER ==
[2020-10-22] MEDS ORDERED: ONDANSETRON *ODT* 4 MG TABLET SL PRN (12:12)
[2020-10-22] MEDS ORDERED: METHOCARBAMOL 500 MG TABLET PO PRN (12:12)
[2020-10-22] MEDS ORDERED: ACETAMINOPHEN 325 MG TABLET (FP) PO PRN (12:12)
[2020-10-22] MEDS ORDERED: BISMUTH SUBSALICYLATE 524 MG/30 ML UD PO PRN (12:12)
[2020-10-22] MEDS ORDERED: chlordiazePOXIDE HCL 25 MG CAPSULE PO PRN (12:12)
[2020-10-22] MEDS ORDERED: MAG HYDROX/AL HYDROX/SIMETH 30 ML UNIT-DOSE CUP PO PRN (12:12)
[2020-10-22] MEDS ORDERED: MAGNESIUM CITRATE 300 ML BOTTLE PO PRN (12:12)
[2020-10-22] MEDS ORDERED: MAGNESIUM HYDROX 2400MG/30ML ORAL SUSPENSION 30 ML CUP PO PRN (12:12)
[2020-10-22] MEDS ORDERED: MENTHOL/PHENOL 1 EACH UD MM PRN (12:12)
[2020-10-22 12:30] VITALS: BMI 37.4
[2020-10-22] MEDS ORDERED: NICOTINE 21 MG/24 HOURS TOPICAL PATCH ONE (14:02)
[2020-10-22] MEDS ORDERED: LISINOPRIL 10 MG TABLET ONE (14:02)
[2020-10-22] MEDS ORDERED: chlordiazePOXIDE HCL 25 MG CAPSULE ONE ×2 (14:02→14:03)
[2020-10-22] MEDS ORDERED: amLODIPine BESYLATE 5 MG TABLET (FP) ONE (14:02)
[2020-10-22] MEDS: chlordiazePOXIDE HCL 25 MG CAPSULE PO SCH ×3 (14:09→23:53)
[2020-10-22] MEDS: amLODIPine BESYLATE 10 MG TABLET (FP) PO SCH (14:10)
[2020-10-22] MEDS: LISINOPRIL 20 MG TABLET PO SCH (14:10)
[2020-10-22] MEDS: NICOTINE 21 MG/24 HOURS TOPICAL PATCH TD SCH (14:10)
[2020-10-22] MEDS: HYDROCHLOROTHIAZIDE 25 MG TABLET (FP) PO SCH (17:21)
[2020-10-22] MEDS: PRENATAL VITAMINS W/ FOLIC ACID TABLET (FP) PO SCH (17:22)
[2020-10-22] MEDS: PANTOPRAZOLE 40 MG TABLET PO SCH (17:22)
[2020-10-22] MEDS: FLUTICASONE PROP 0.05% 16 GM NASAL SPRAY NS SCH ×2 (17:23→23:53)
[2020-10-22] MEDS: hydrOXYzine PAMOATE 25 MG CAPSULE (FP) PO SCH ×3 (17:24→23:53)
[2020-10-22] MEDS: VITAMINS A AND D TOPICAL OINTMENT 60 GM TUBE TP SCH ×2 (19:00→23:54)
[2020-10-22] MEDS: LORATADINE 10 MG TABLET PO SCH (23:53)
[2020-10-22] MEDS: MELATONIN 5 MG TABLETS PO SCH (23:53)
[2020-10-22] MEDS: THIAMINE HCL 100 MG TABLET (FP) PO SCH (23:54)
[2020-10-23] MEDS: VITAMINS A AND D TOPICAL OINTMENT 60 GM TUBE TP SCH ×4 (05:25→23:28)
[2020-10-23] MEDS: chlordiazePOXIDE HCL 25 MG CAPSULE PO SCH ×4 (06:49→22:09)
[2020-10-23] MEDS: hydrOXYzine PAMOATE 25 MG CAPSULE (FP) PO SCH ×5 (06:51→22:09)
[2020-10-23] MEDS: LISINOPRIL 20 MG TABLET PO SCH (10:45)
[2020-10-23] MEDS: PANTOPRAZOLE 40 MG TABLET PO SCH (10:45)
[2020-10-23] MEDS: HYDROCHLOROTHIAZIDE 25 MG TABLET (FP) PO SCH (10:45)
[2020-10-23] MEDS: amLODIPine BESYLATE 10 MG TABLET (FP) PO SCH (10:45)
[2020-10-23] MEDS: NICOTINE 21 MG/24 HOURS TOPICAL PATCH TD SCH (10:46)
[2020-10-23] MEDS: PRENATAL VITAMINS W/ FOLIC ACID TABLET (FP) PO SCH (10:52)
[2020-10-23] MEDS: FLUTICASONE PROP 0.05% 16 GM NASAL SPRAY NS SCH ×2 (10:52→22:08)
[2020-10-23 11:12] LABS: HEMATOCRIT 41.3 % (35.4-49); HEMOGLOBIN 13.8 GM/dL (11.7-16.9); MCH 32.3 pg (25.7-33.7); MCHC 33.4 g/dl (32.0-35.9); MEAN CELL VOLUME 96.6 fl (80-96); MEAN PLT VOLUME 8.3 fl (7.5-11.1); PLATELET COUNT 267 K/MM3 (134-434); RBC 4.28 M/mm3 (4.00-5.60); RDW 13.8 % (11.9-15.9)
[2020-10-23 11:14] LABS: POTASSIUM 3.3 mmol/L (3.5-5.1)
[2020-10-23 11:22] LABS: CALCIUM 8.8 mg/dL (8.5-10.1)
[2020-10-23 11:23] LABS: ALBUMIN 3.8 g/dl (3.4-5.0); BLOOD UREA NITROGEN 25.6 mg/dL (7-18)
[2020-10-23 11:29] LABS: BILIRUBIN,TOTAL 0.6 mg/dL (0.2-1)
[2020-10-23 11:30] LABS: CREATININE 1.7 mg/dL (0.55-1.3)
[2020-10-23 11:31] LABS: TOT PROT 7.1 g/dl (6.4-8.2)
[2020-10-23] MEDS ORDERED: POTASSIUM CHLORIDE TABS 20 MEQ TABLET.ER (FP) PO ONE (14:16)
[2020-10-23] MEDS: BACITRACIN 0.9 GM PACKET TP SCH ×2 (14:33→22:07)
[2020-10-23] MEDS: ACETAMINOPHEN 325 MG TABLET (FP) PO PRN (18:02)
[2020-10-23] MEDS: MELATONIN 5 MG TABLETS PO SCH (22:06)
[2020-10-23] MEDS: LORATADINE 10 MG TABLET PO SCH (22:07)
[2020-10-23] MEDS: THIAMINE HCL 100 MG TABLET (FP) PO SCH (22:07)
[2020-10-23] MEDS: IBUPROFEN 400 MG TABLET (FP) PO PRN (22:12)
[2020-10-24] MEDS: hydrOXYzine PAMOATE 25 MG CAPSULE (FP) PO SCH ×5 (05:02→22:05)
[2020-10-24] MEDS: chlordiazePOXIDE HCL 25 MG CAPSULE PO SCH ×4 (05:03→22:05)
[2020-10-24] MEDS: VITAMINS A AND D TOPICAL OINTMENT 60 GM TUBE TP SCH ×4 (05:04→23:24)
[2020-10-24] MEDS: POTASSIUM CHLORIDE TABS 20 MEQ TABLET.ER (FP) PO SCH ×2 (10:30→17:32)
[2020-10-24] MEDS: LISINOPRIL 20 MG TABLET PO SCH (10:30)
[2020-10-24] MEDS: HYDROCHLOROTHIAZIDE 25 MG TABLET (FP) PO SCH (10:31)
[2020-10-24] MEDS: amLODIPine BESYLATE 10 MG TABLET (FP) PO SCH (10:31)
[2020-10-24] MEDS: NICOTINE 21 MG/24 HOURS TOPICAL PATCH TD SCH (10:31)
[2020-10-24] MEDS: PANTOPRAZOLE 40 MG TABLET PO SCH (10:31)
[2020-10-24] MEDS: FLUTICASONE PROP 0.05% 16 GM NASAL SPRAY NS SCH ×2 (10:33→22:04)
[2020-10-24] MEDS: BACITRACIN 0.9 GM PACKET TP SCH ×2 (10:33→22:04)
[2020-10-24] MEDS: PRENATAL VITAMINS W/ FOLIC ACID TABLET (FP) PO SCH (10:34)
[2020-10-24] MEDS: ACETAMINOPHEN 325 MG TABLET (FP) PO PRN (17:32)
[2020-10-24] MEDS: LORATADINE 10 MG TABLET PO SCH (22:04)
[2020-10-24] MEDS: THIAMINE HCL 100 MG TABLET (FP) PO SCH (22:05)
[2020-10-24] MEDS: IBUPROFEN 400 MG TABLET (FP) PO PRN (22:06)
[2020-10-24] MEDS: MELATONIN 5 MG TABLETS PO SCH (22:06)
[2020-10-25] MEDS ORDERED: chlordiazePOXIDE HCL 10 MG CAPSULE PO PRN
[2020-10-25] MEDS: chlordiazePOXIDE HCL 10 MG CAPSULE PO SCH ×4 (05:49→22:03)
[2020-10-25] MEDS: hydrOXYzine PAMOATE 25 MG CAPSULE (FP) PO SCH ×5 (05:49→22:04)
[2020-10-25] MEDS: VITAMINS A AND D TOPICAL OINTMENT 60 GM TUBE TP SCH ×4 (05:50→23:25)
[2020-10-25] MEDS: BACITRACIN 0.9 GM PACKET TP SCH ×2 (10:13→22:03)
[2020-10-25] MEDS: PRENATAL VITAMINS W/ FOLIC ACID TABLET (FP) PO SCH (10:13)
[2020-10-25] MEDS: NICOTINE 21 MG/24 HOURS TOPICAL PATCH TD SCH (10:13)
[2020-10-25] MEDS: PANTOPRAZOLE 40 MG TABLET PO SCH (10:13)
[2020-10-25] MEDS: FLUTICASONE PROP 0.05% 16 GM NASAL SPRAY NS SCH ×2 (10:13→22:03)
[2020-10-25] MEDS: amLODIPine BESYLATE 10 MG TABLET (FP) PO SCH (10:13)
[2020-10-25] MEDS: HYDROCHLOROTHIAZIDE 25 MG TABLET (FP) PO SCH (10:13)
[2020-10-25] MEDS: LISINOPRIL 20 MG TABLET PO SCH (10:13)
[2020-10-25] MEDS: IBUPROFEN 400 MG TABLET (FP) PO PRN ×2 (13:07→22:04)
[2020-10-25 14:13] LABS: POTASSIUM 3.7 mmol/L (3.5-5.1)
[2020-10-25 14:15] LABS: BLOOD UREA NITROGEN 20.9 mg/dL (7-18); CALCIUM 9.1 mg/dL (8.5-10.1)
[2020-10-25] MEDS: NICOTINE POLACRILEX 2 MG GUM BC PRN (17:39)
[2020-10-25] MEDS: NICOTINE POLACRILEX 2 MG GUM BUC PRN (21:29)
[2020-10-25] MEDS: THIAMINE HCL 100 MG TABLET (FP) PO SCH (22:02)
[2020-10-25] MEDS: LORATADINE 10 MG TABLET PO SCH (22:02)
[2020-10-25] MEDS: MELATONIN 5 MG TABLETS PO SCH (22:03)
[2020-10-26] MEDS: hydrOXYzine PAMOATE 25 MG CAPSULE (FP) PO SCH (06:38)
[2020-10-26] MEDS: VITAMINS A AND D TOPICAL OINTMENT 60 GM TUBE TP SCH ×4 (06:39→23:18)
[2020-10-26] MEDS: chlordiazePOXIDE HCL 10 MG CAPSULE PO SCH ×2 (06:39→17:31)
[2020-10-26] MEDS ORDERED: hydrOXYzine PAMOATE 25 MG CAPSULE (FP) PO PRN (07:33)
[2020-10-26] MEDS: amLODIPine BESYLATE 10 MG TABLET (FP) PO SCH (10:55)
[2020-10-26] MEDS: BACITRACIN 0.9 GM PACKET TP SCH ×2 (10:55→22:02)
[2020-10-26] MEDS: PRENATAL VITAMINS W/ FOLIC ACID TABLET (FP) PO SCH (10:55)
[2020-10-26] MEDS: PANTOPRAZOLE 40 MG TABLET PO SCH (10:55)
[2020-10-26] MEDS: LISINOPRIL 20 MG TABLET PO SCH (10:55)
[2020-10-26] MEDS: HYDROCHLOROTHIAZIDE 25 MG TABLET (FP) PO SCH (10:55)
[2020-10-26] MEDS: NICOTINE 21 MG/24 HOURS TOPICAL PATCH TD SCH (10:55)
[2020-10-26] MEDS: FLUTICASONE PROP 0.05% 16 GM NASAL SPRAY NS SCH ×2 (10:59→22:02)
[2020-10-26] MEDS: NICOTINE POLACRILEX 2 MG GUM BUC PRN ×2 (11:03→15:52)
[2020-10-26] MEDS: ACETAMINOPHEN 325 MG TABLET (FP) PO PRN ×2 (12:38→22:03)
[2020-10-26] MEDS: NICOTINE POLACRILEX 2 MG GUM BC PRN ×2 (17:34→22:25)
[2020-10-26] MEDS: LORATADINE 10 MG TABLET PO SCH (22:02)
[2020-10-26] MEDS: THIAMINE HCL 100 MG TABLET (FP) PO SCH (22:03)
[2020-10-26] MEDS: MELATONIN 5 MG TABLETS PO SCH (22:03)
[2020-10-27] MEDS ORDERED: chlordiazePOXIDE HCL 10 MG CAPSULE PO ONE (05:00)
[2020-10-27] MEDS: VITAMINS A AND D TOPICAL OINTMENT 60 GM TUBE TP SCH (06:20)
[2020-10-27 06:25] VITALS: BP 148/85; PULSE 75; TEMP 95.5
== END 2020-10-27 06:29 | disposition home or self-care (01) | DRG 774 ==
LOC: YASAS 09:38 → Y6N 15:15
PROVIDERS: ADMIT Allergy & Immunology; ATTEND Allergy & Immunology
PROC: HZ2ZZZZ Detoxification Services for Substance Abuse Treatment (ICD-10-PCS; principal; 2020-10-22)
DX: F10.230 Alcohol dependence with withdrawal, uncomplicated (principal); F14.20 Cocaine dependence, uncomplicated; F17.210 Nicotine dependence, cigarettes, uncomplicated; I10 Essential (primary) hypertension; R00.0 Tachycardia, unspecified; E87.6 Hypokalemia; R79.89 Other specified abnormal findings of blood chemistry; R74.01 Elevation of levels of liver transaminase levels; K21.9 Gastro-esophageal reflux disease without esophagitis; L30.9 Dermatitis, unspecified; R06.03 Acute respiratory distress; E66.01 Morbid (severe) obesity due to excess calories; Z68.37 Body mass index [BMI] 37.0-37.9, adult; Z88.0 Allergy status to penicillin; Z91.013 Allergy to seafood
CPT/HCPCS: 36415; 80048; 80053; 85027; 86780; C9803; U0003